=== PATIENT | female | born 1990 | race Two or more races ===

== ENCOUNTER 2019-05-05 12:38 | Emergency (ER) | payer OTHER ==
[~2019-05-05] VITALS: Ht 175.3 cm; Wt 90.7 kg
--- NOTE | 2019-05-05 12:50 | NUR ---
VAGINAL BLEEDING X TODAY. FOUND OUT SHE IS YESTERDAY. ADMITS TO DRUG USE YESTERDAY. PATIENT SEEN BY PIA MONTERO. PATIENT A/OX4, NO DISTRESS NOTED. KEPT COMFORTABLE. CHANGED INTO GOWN.
--- NOTE | 2019-05-05 13:11 | NUR ---
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
--- NOTE | 2019-05-05 13:12 | NUR ---
CALLED FOR FOOD TRAY.
[2019-05-05 13:34] LABS: BASOPHILS % (AUTO) 0.4 % (0.0-2.0); EOSINOPHILS % (AUTO) 0.7 % (0.0-6.0); HEMATOCRIT 42 % (33-45); HEMOGLOBIN 13.8 g/dL (11.5-14.8); LYMPHOCYTES # (AUTO) 2.4 /CMM (0.8-4.8); LYMPHOCYTES % (AUTO) 23.6 % (20.0-44.0); MEAN CORPUSCULAR HGB CONC 33 g/dl (31.0-36.0); MEAN CORPUSCULAR VOLUME 97 fL (82-100); MONOCYTES # (AUTO) 0.6 /CMM (0.1-1.30); MONOCYTES % (AUTO) 6.1 % (2.0-12.0); NEUTROPHILS # (AUTO) 7.1 /CMM (1.8-8.9); NEUTROPHILS % (AUTO) 69.2 % (43.0-81.0); PLATELET COUNT (AUTO) 324 /CMM (150-450); RED BLOOD CELL COUNT(AUTO) 4.27 MIL/uL (4.0-5.2); WHITE BLOOD COUNT (AUTO) 10.2 K/uL (4.3-11.0)
[2019-05-05 13:39] LABS: APPEARANCE,URINE Clear (CLEAR); BILIRUBIN,URINE SMALL (NEGATIVE); BLOOD, URINE Large Ery/uL (NEGATIVE); COLOR,URINE Yellow (YELLOW); KETONES,URINE >=160 (NEGATIVE); LEUKOCYTE ESTERASE ,URINE Negative (NEGATIVE); NITRITE, URINE Negative (NEGATIVE); PH,URINE 5.5 (5.0-8.0); PROTEIN,URINE Trace mg/dl (NEGATIVE); UGLUCOSE Negative (NEGATIVE); UROBILINOGEN,URINE 0.2 EU/dL (0.2)
[2019-05-05 13:47] LABS: BACTERIA,URINE Few /HPF (None Seen); SQUAMOUS EPITHELIAL CELL,UR Few /HPF (None Seen)
[2019-05-05 13:49] LABS: CALCIUM, SERUM 9.2 mg/dL (8.5-10.1); CREATININE 0.5 mg/dL (0.6-1.3); POTASSIUM 3.9 mmol/L (3.5-5.1)
--- NOTE | 2019-05-05 14:24 | NUR ---
PATIENT SEEN AND EVALUATED BY [facility] [place].
--- NOTE | 2019-05-05 14:26 | NUR ---
MAGDA received a call from NICHOLE Dunham in ED requesting for SW to see the pt. for homeless/drug rehab resources. Pt. is a 28 year old female who came to [facility] ED due to vaginal bleeding. MAGDA met with the pt. bedside. Pt. is alert and oriented x 4. Pt. appeared disheveled and teary eyed. Pt. has a tattoo over her left eyebrow. Pt. stated she has been homeless for the past 4 months. Pt. has a 1 year and 4 month old son and a 4 month old daughter that reside with her grandmother. Pt. began crying stating, she wants to have her children and needs to get clean from drugs. MAGDA offered active listening and emotional support to the pt. Pt. has an open DCFS case. Pt. has been in and out of drug rehab and has been sober for 6 months in the past. Pt. was at a rehab in [place] within the past year. Pt. drug of choice is heroin and methamphetamines. Pt. last used 4 days ago. Pt. found out during this ED visit that she is again. Pt. states she would like to have an and is contemplating it. Pt's boyfriend John came in to the room after SW was done with the assessment. Pt. declined senior care placement and requested of resources only. Pt. was provided with the following resources: [facility], [address] A [place] [id number] ; [facility] [place], [address] [facility] ; [facility] Homeless Resource Directory which includes food stamps, transitional housing, showers and hot meals etc; Mental Health clinics such as [facility] ; [facility] Mental [facility] ; Health clinics;[facility] and Alcohol treatment centers such as [facility], ; [facility] Substance Abuse Hotline and [facility] . Pt.was provided with a TAP card and two meals.
--- NOTE | 2019-05-05 15:10 | NUR ---
Patient given written and verbal discharge instructions. Patient verbalizes understanding of instructions. Patient is ambulatory with steady gait. Refuses offer of skilled nursing placement. Patient given list of available shelters in surrounding area.
--- NOTE | 2019-05-05 15:20 | NUR ---
Received a call from lab, patient is a candidate for rhogam. Brittany MONTERO made aware. Attempted to catch patient outside, but unsuccessful. KYLAH made aware. No phone number listed on contact number.
[2019-05-05 15:28] VITALS: BP 130/80
== END 2019-05-05 15:28 | disposition home or self-care (01) ==
LOC: ER 12:38
DX: O03.4 Incomplete spontaneous abortion without complication (principal); F19.10 Other psychoactive substance abuse, uncomplicated; E11.9 Type 2 diabetes mellitus without complications; Z59.0 Homelessness; Z88.8 Allergy status to other drugs, medicaments and biological substances; Z3A.08 8 weeks gestation of pregnancy
CPT/HCPCS: 36415; 76805-TC; 80048-TC; 81000-TC; 84702-TC; 84703-TC; 85025-TC; 87086-TC

== ENCOUNTER 2022-08-06 10:27 | Emergency (ER) | payer OTHER ==
[~2022-08-06] VITALS: Ht 175.3 cm; Wt 98.0 kg
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
[2022-08-06] MEDS ORDERED: IV NS 0.9% 1,000 ML BAG IV ONE (11:00)
--- NOTE | 2022-08-06 11:00 | NUR ---
POLICE AT BEDSIDE
--- NOTE | 2022-08-06 11:00 | NUR ---
US TECH AT BEDSIDE
--- NOTE | 2022-08-06 11:35 | NUR ---
IV STARTED. R AC 20G. FLUIDS RUNNING
--- NOTE | 2022-08-06 11:36 | NUR ---
COVID SWAB TAKEN AND SENT TO LAB
[2022-08-06 11:47] LABS: BASOPHILS % (AUTO) 0.2 % (0.0-2.0); EOSINOPHILS % (AUTO) 0.8 % (0.0-6.0); HEMATOCRIT 39 % (33-45); HEMOGLOBIN 12.9 g/dL (11.5-14.8); LYMPHOCYTES # (AUTO) 1.9 K/uL (0.8-4.8); LYMPHOCYTES % (AUTO) 20.3 % (20.0-44.0); MEAN CORPUSCULAR HGB CONC 33 g/dl (31.0-36.0); MEAN CORPUSCULAR VOLUME 98 fL (82-100); MONOCYTES # (AUTO) 0.5 K/uL (0.1-1.30); MONOCYTES % (AUTO) 5.5 % (2.0-12.0); NEUTROPHILS # (AUTO) 6.8 K/uL (1.8-8.9); NEUTROPHILS % (AUTO) 73.2 % (43.0-81.0); PLATELET COUNT (AUTO) 390 K/uL (150-450); RED BLOOD CELL COUNT(AUTO) 3.94 MIL/uL (4.0-5.2); WHITE BLOOD COUNT (AUTO) 9.3 K/uL (4.3-11.0)
[2022-08-06 11:56] LABS: CREATININE 0.6 mg/dL (0.6-1.3); POTASSIUM 3.9 mmol/L (3.5-5.1)
[2022-08-06 12:01] LABS: ALBUMIN 2.7 g/dL (3.4-5.0); BILIRUBIN,DIRECT 0.1 mg/dL (0.0-0.2); BILIRUBIN,TOTAL 0.1 mg/dL (0.2-1.0); TOTAL PROTEIN, SERUM 7.3 g/dL (6.4-8.2)
--- NOTE | 2022-08-06 12:10 | NUR ---
URINE SAMPLE TAKEN AND SENT TO LAB
--- NOTE | 2022-08-06 12:55 | NUR ---
SS Consult: SS consult requested for drug use and resources. The pt. is a 32-year-old female pt. who came into the ED due to dizziness and medical clearance to be taken into custody by [employer] per EMR. [employer] officer Brennon#[id number] at bedside. Upon SS consult, the pt. is Alert & Oriented x 4 and makes good eye contact. The pt. appears well-groomed. Pt. has euthymic mood & affect. Pt.s speech is low and clear. Pt. was cooperative throughout interview and presents guarded. The pt. denies SI/HI and denies hallucinations. SW explored pt.s living situation. Patient states she is currently experiencing homelessness. SW provided pt. with homeless resources and pt. accepted them. SW explored pt.s mental health Hx. Pt. states she has a Hx. of bipolar disorder and has been prescribed Zoloft and Seroquel by a psychiatrist, at [place] [address] counseling services where she also received therapy services. SW explored pt.s drug & ETOH use. Pt. is guarded and did not want to discuss her drug or alcohol use. Per EMR, the pt. is . SW provided pt. with and post- resources and pt. accepted expressed being grateful. Per pt. she is ambulatory and independent with her ADLs. Plan: Pt. will be taken into custody by [employer] upon medical clearance. Pt. signed homeless waiver and it was placed in the pt.s chart. SW provided pt. with the following homeless resources and pt. accepted them: ADOPTION: [phone] [facility] [place] [facility] [place] CD Diagnostics Service [place] [phone] Capri Smith Adoption BREAST FEEDING: [phone] La Leche [phone] My Nursing Hand Splitter Mobile Service The Pump Connection [facility] ASSISTANT MANAGER RETAIL: Child Resource Center [facility] LAUP.net [facility] CHILD SUPPORT: [facility] www.cssd.[phone] www.childsup.[place].gov MATERNITY HOUSING: [place] (teens) 18 years + Lupe Bain Ivy [phone] Hebert [phone] [facility] [phone] PARENTING CLASSES: [facility] First [address] [phone] Friends of the [phone] [phone] [employer] Adult [employer] Boaz Program Child/Family Center in [facility] PATERNITY TESTING: [phone] [phone] [facility] Ctr. Lab Divya. [facility] Mailroom Courier Offices www.[facility] / CARE: [facility] Support [place] office [phone] [phone] Care.[facility] all types of support Tender [phone] PREPARED CHILDBIRTH: [phone] [facility] SUBSTANCE ABUSE SUPPORT: [phone] Via [phone] [facility] [place] PROGRAM: Provides supplementary food cards for women and children under 5 years of age. SFV: Loja: Happy: Chelsea: OTHER RESOURCES: [facility] provides food, clothing, furniture, medical care, etc., to families and children living in the [facility] areas. [facility] Family Rescue Cent. Safety Belt [place]- car seat discounts Multiples of Rody Support www.[facility] state hospitalotc.org Food Pantries www.Hail Varsity.org www.Bluff Wars.org Cord Banking: http://americanVillijancy.org/yrubb-qvt-pipna/dexu-izhzj-rsqfhfg Winter Correction list : [place] MAC; AB Adult WSP site; ROWAN Adult WSP site; and WFD Adult WSP site; instruction to call 211 for availability. Year-round shelters: [place] [address] [address] ; [facility] [place] [address] [place] [address]; [facility] Dkpepqn5722 [facility]. [facility] [address] Hygiene: [facility] [facility]: [address] [place] ; [facility] [address] [facility] ; [facility] [address] [facility] . Food Resources: [place] Food Pantry at [facility]- [address] [place]; Meet Each Need with Dignity ([facility]) [address] [facility]; [facility] Food Pantry [address] [facility]; [facility] [address] [facility]el [place]. Mental Health resources provided: [facility] [address] [place] [address] ; [facility] Mental Health [place] [address] [facility] [address], [place] [address] ; [facility] [address] [place] [address] ; [facility] [address] [place], [place] [phone] Healthcare Clinics: [facility] [address] [facility], [address] [place]. [place] ; [facility] [address] [facility] [address] [place] [address]; [facility] [address] [place] [address] [phone] Counseling--Outpatient [facility] [address] [facility] [address] [address], [place] [address] (Specializes in in-depth psychotherapy for emotional distress: anxiety, depression, interpersonal conflicts, life transitions, childhood abuse) [facility] [address] [place] [address] (Assist with solving problem marital difficulties, separation & divorce, aging parents, & grief, chronic & terminal illness) [facility] [address] [place] [address] (Deal with loss & grief, anxiety, marital difficulties) Homebound/Mental Health Services [address] [facility], [address] [place] [address] (Provide in-home mental services to people who are incapable of leaving their homes) Organization for Needs of the Elderly Senior Service/Resource Center [address] [place] [address] [facility] [address] [place] [address] PSYCHIATRIC OUTPATIENT SERVICES [facility] Partial Hospitalization and Intensive Outpatient Program (Managed Care and [place] Only)[address] [address]. [facility] [phone] [facility] Partial Hospitalization and Outpatient [id number] [facility]. [address] [place], [place] [phone] VAN NUYS [facility] [id number] Nic [facility]. [address] [place], [place] [phone] [facility] Rupa Partial Hospitalization and Outpatient Paijlnv37545 Christian [place], [phone] Substance Abuse resources provided included: [facility] Substance Abuse Self-Helpline ([facility]) ; [facility]RI -[facility]LP [address] [facility]. [place] 916t01 ; [facility] [address] [facility] [address] ; [facility] Rehabilitation Program [address] [facility] [address] ; [facility] [address] [facility] [phone] ; [facility] 4940 [facility] [address] ; [facility] 9[address] [facility]. [facility] [id number] ; [facility] Substance Abuse Helpline([facility] ; [facility] ; [facility]; [facility] [place]; Cri[facility]Help [place]; I-ADARP Inter Agency Drug Abuse Recovery Giuseppe Goode; [facility] [place]; [facility] [place]; [facility] [place]; [facility], [facility]. [facility]; Alcoholics Anonymous -SFV; Kl-Vuym-Nzcdxhz ; Marijuana Anonymous -SFV; Narcotics Anonymous www.na.org;
[2022-08-06 12:56] VITALS: BP 138/76
--- NOTE | 2022-08-06 12:57 | NUR ---
Patient discharged with [employer] [id number] in stable condition. Written and verbal after care instructions given. Patient verbalizes understanding of instruction.
== END 2022-08-06 12:59 ==
LOC: ER 10:29
DX: O99.322 Drug use complicating pregnancy, second trimester (principal); F15.10 Other stimulant abuse, uncomplicated; Z3A.24 24 weeks gestation of pregnancy; R55 Syncope and collapse; Z20.822 Contact with and (suspected) exposure to COVID-19; R73.03 Prediabetes; Z86.16 Personal history of COVID-19
CPT/HCPCS: 99285; 96360; 93005; 76805; 85025; 80048; 80076; 36415; 85730; 86850; 82962; 84702; 87426; 80320; 80307; J7030; C9803; G0480

== ENCOUNTER 2024-03-09 12:10 | Emergency (ER) | payer OTHER ==
[~2024-03-09] VITALS: Ht 175.3 cm; Wt 90.7 kg
[2024-03-09 12:43] LABS: BASOPHILS % (AUTO) 0.4 % (0.0-2.0); HEMATOCRIT 43 % (33-45); HEMOGLOBIN 14.2 g/dL (11.5-14.8); LYMPHOCYTES # (AUTO) 1.7 K/uL (0.8-4.8); LYMPHOCYTES % (AUTO) 24.4 % (20.0-44.0); MEAN CORPUSCULAR HEMOGLOBIN 31 PG (26.0-33.0); MEAN CORPUSCULAR HGB CONC 33 g/dl (31.0-36.0); MEAN CORPUSCULAR VOLUME 92 fL (82-100); MONOCYTES # (AUTO) 0.3 K/uL (0.1-1.30); NEUTROPHILS # (AUTO) 4.8 K/uL (1.8-8.9); NEUTROPHILS % (AUTO) 70.2 % (43.0-81.0); PLATELET COUNT (AUTO) 332 K/uL (150-450); RED BLOOD CELL COUNT(AUTO) 4.63 MIL/uL (4.0-5.2); RED CELL DISTRIBUTION WIDTH 14.2 % (11.5-15.0); WHITE BLOOD COUNT (AUTO) 6.8 K/uL (4.3-11.0)
[2024-03-09] MEDS: IV NS 0.9% 1,000 ML BAG IV ONE (12:58)
[2024-03-09 13:08] LABS: CALCIUM, SERUM 9.7 mg/dL (8.5-10.1); CREATININE 0.7 mg/dL (0.6-1.3); POTASSIUM 3.8 mmol/L (3.5-5.1)
[2024-03-09] MEDS ORDERED: NALO4SPR BNOSTRILS (13:45)
[2024-03-09 13:53] VITALS: BP 119/75; TEMP 98.8; O2SAT 98
== END 2024-03-09 13:54 ==
LOC: ER 12:12
DX: R55 Syncope and collapse (principal); F19.10 Other psychoactive substance abuse, uncomplicated; R10.2 Pelvic and perineal pain; Z88.8 Allergy status to other drugs, medicaments and biological substances
CPT/HCPCS: 99284; 96360; 93005; 85025; 80048; 36415; 84702; J7030